=== PATIENT | male | born 1950 | race Caucasian/White ===

== ENCOUNTER 2020-06-11 16:26 | Inpatient (IN) ==
[2020-06-11] MEDS: Melatonin 3 MG TABLET PO SCH (22:41)
[2020-06-11] MEDS: traZODone 50 MG TABLET PO SCH (23:08)
[2020-06-12 06:47] LABS: Hematocrit 21.1 % (37.5-50.1); Hemoglobin 6.5 g/dL (12.9-16.9); Mean Corpuscular HGB Conc 30.8 g/dL (31.6-35.5); Mean Corpuscular Hemoglobin 28.1 pg (28.0-33.3); Mean Corpuscular Volume 91.3 fL (83.0-100.0); Mean Platelet Volume 9.2 fL (9.4-12.4); Platelet Count 302 K/mcL (140-400); Red Blood Count 2.31 M/mcL (4.19-5.50); Red Cell Distribution Width 18.4 % (11.5-14.5); White Blood Count 9.7 K/mcL (4.3-11.1)
[2020-06-12] MEDS ORDERED: 0.9 % Sodium Chloride 250 ML IVC SCH (08:00)
[2020-06-12] MEDS: *HR* Amiodarone 200 MG TABLET PO SCH (08:44)
[2020-06-12] MEDS: predniSONE 5 MG TABLET PO SCH (08:44)
[2020-06-12 08:51] LABS: Alanine Aminotransferase 24 Units/L (7-52); Albumin 2.6 g/dL (3.5-5.7); Albumin/Globulin Ratio 0.9 (1.1-2.2); Alkaline Phosphatase 98 Units/L (34-104); Aspartate Amino Transferase 18 Units/L (13-39); BUN/Creatinine Ratio 22 (6-26); Bilirubin,Total 0.5 mg/dL (0.3-1.0); Blood Urea Nitrogen 26 mg/dL (8-23); Calcium 8.4 mg/dL (8.6-10.3); Carbon Dioxide 30 mEq/L (23-29); Chloride 94 mEq/L (98-107); Globulin 2.8 g/dL (2.4-3.5); Glucose 90 mg/dL (70-105); Magnesium 2.3 mg/dL (1.6-2.6); Osmolality,Calculated 278 (280-300); Potassium 3.7 mEq/L (3.5-5.1); Sodium 132 mEq/L (136-145); Total Protein 5.4 g/dL (6.4-8.9); eGFR For African Americans > 60 (> 60); eGFR For Non-African Americans > 60 (> 60)
[2020-06-12] MEDS ORDERED: Torsemide 20 MG TABLET PO SCH (09:00)
[2020-06-12] MEDS ORDERED: Apixaban 2.5 MG TABLET PO SCH ×2 (09:00)
[2020-06-12] MEDS: Apixaban 5 MG TABLET PO SCH ×2 (11:57→20:41)
[2020-06-12] MEDS ORDERED: 0.9 % Sodium Chloride 1,000 ML ONE (14:38)
[2020-06-12] MEDS: traZODone 50 MG TABLET PO SCH (20:41)
[2020-06-12] MEDS: Melatonin 3 MG TABLET PO SCH (20:41)
[2020-06-12] MEDS ORDERED: traZODone 50 MG TABLET PO SCH (21:00)
[2020-06-13 05:32] LABS: Basophils # 0.1 K/mcL (0.0-0.2); Basophils % 0.6 %; Eosinophils # 0.4 K/mcL (0.0-0.6); Hematocrit 27.4 % (37.5-50.1); Hemoglobin 8.9 g/dL (12.9-16.9); Immature Granulocytes % 0.4 % (0-4); Lymphocytes # 1.7 K/mcL (0.6-4.6); Lymphocytes % 17.3 %; Mean Corpuscular HGB Conc 32.5 g/dL (31.6-35.5); Mean Corpuscular Hemoglobin 28.8 pg (28.0-33.3); Mean Corpuscular Volume 88.7 fL (83.0-100.0); Mean Platelet Volume 9.2 fL (9.4-12.4); Monocytes # 0.7 K/mcL (0.0-1.3); Neutrophils # 6.9 K/mcL (1.6-8.9); Platelet Count 303 K/mcL (140-400); Red Blood Count 3.09 M/mcL (4.19-5.50); Red Cell Distribution Width 17.6 % (11.5-14.5); Segmented Neutrophils % 70.7 %; White Blood Count 9.7 K/mcL (4.3-11.1)
[2020-06-13 08:27] LABS: BUN/Creatinine Ratio 22 (6-26); Blood Urea Nitrogen 26 mg/dL (8-23); Calcium 8.2 mg/dL (8.6-10.3); Carbon Dioxide 30 mEq/L (23-29); Chloride 96 mEq/L (98-107); Glucose 79 mg/dL (70-105); Osmolality,Calculated 284 (280-300); Sodium 135 mEq/L (136-145); eGFR For African Americans > 60 (> 60); eGFR For Non-African Americans 60 (> 60)
[2020-06-13] MEDS: *HR* Amiodarone 200 MG TABLET PO SCH (08:43)
[2020-06-13] MEDS: Torsemide 20 MG TABLET PO SCH (08:43)
[2020-06-13] MEDS: predniSONE 5 MG TABLET PO SCH (08:43)
[2020-06-13 09:01] LABS: Estimated Average Glucose 97 mg/dl
[2020-06-13] MEDS ORDERED: Potassium Chloride Elixir 20 MEQ/15 ML UDC PO ONE (09:22)
[2020-06-13] MEDS: Apixaban 5 MG TABLET PO SCH (09:41)
[2020-06-13] MEDS: Sennosides/Docusate Sodium TABLET PO SCH ×2 (11:47→20:44)
[2020-06-13] MEDS ORDERED: Methyl Salicylate/Menthol 57 APPL/57 GM TUBE TP PRN (15:08)
[2020-06-13] MEDS: Melatonin 3 MG TABLET PO SCH (20:44)
[2020-06-13] MEDS: traZODone 50 MG TABLET PO SCH (20:44)
[2020-06-14 06:35] LABS: Basophils # 0.1 K/mcL (0.0-0.2); Basophils % 0.7 %; Eosinophils # 0.4 K/mcL (0.0-0.6); Eosinophils % 4.4 %; Hemoglobin 8.9 g/dL (12.9-16.9); Immature Granulocytes % 0.7 % (0-4); Lymphocytes # 1.5 K/mcL (0.6-4.6); Lymphocytes % 17.2 %; Mean Corpuscular HGB Conc 31.8 g/dL (31.6-35.5); Mean Corpuscular Volume 91.2 fL (83.0-100.0); Mean Platelet Volume 9.2 fL (9.4-12.4); Monocytes # 0.7 K/mcL (0.0-1.3); Monocytes % 7.8 %; Platelet Count 282 K/mcL (140-400); Red Blood Count 3.07 M/mcL (4.19-5.50); Red Cell Distribution Width 17.6 % (11.5-14.5); Segmented Neutrophils % 69.2 %; White Blood Count 8.6 K/mcL (4.3-11.1)
[2020-06-14 06:53] LABS: BUN/Creatinine Ratio 21 (6-26); Blood Urea Nitrogen 21 mg/dL (8-23); Calcium 8.3 mg/dL (8.6-10.3); Carbon Dioxide 28 mEq/L (23-29); Chloride 101 mEq/L (98-107); Glucose 84 mg/dL (70-105); Magnesium 2.1 mg/dL (1.6-2.6); Osmolality,Calculated 286 (280-300); Potassium 3.4 mEq/L (3.5-5.1); Sodium 137 mEq/L (136-145); eGFR For African Americans > 60 (> 60); eGFR For Non-African Americans > 60 (> 60)
[2020-06-14] MEDS: Torsemide 20 MG TABLET PO SCH (08:48)
[2020-06-14] MEDS: *HR* Amiodarone 200 MG TABLET PO SCH (09:31)
[2020-06-14] MEDS: Sennosides/Docusate Sodium TABLET PO SCH ×2 (09:32→20:32)
[2020-06-14] MEDS: predniSONE 5 MG TABLET PO SCH (09:32)
[2020-06-14] MEDS: Melatonin 3 MG TABLET PO SCH (20:33)
[2020-06-14] MEDS: traZODone 50 MG TABLET PO SCH (20:33)
[2020-06-15 06:23] LABS: Basophils # 0.1 K/mcL (0.0-0.2); Basophils % 0.6 %; Eosinophils # 0.4 K/mcL (0.0-0.6); Eosinophils % 4.9 %; Hemoglobin 9.2 g/dL (12.9-16.9); Immature Granulocytes % 0.5 % (0-4); Lymphocytes # 1.6 K/mcL (0.6-4.6); Lymphocytes % 17.7 %; Mean Corpuscular HGB Conc 31.7 g/dL (31.6-35.5); Mean Corpuscular Hemoglobin 29.5 pg (28.0-33.3); Mean Corpuscular Volume 92.9 fL (83.0-100.0); Mean Platelet Volume 9.1 fL (9.4-12.4); Monocytes # 0.6 K/mcL (0.0-1.3); Monocytes % 6.9 %; Neutrophils # 6.1 K/mcL (1.6-8.9); Platelet Count 290 K/mcL (140-400); Red Blood Count 3.12 M/mcL (4.19-5.50); Red Cell Distribution Width 18.2 % (11.5-14.5); Segmented Neutrophils % 69.4 %; White Blood Count 8.8 K/mcL (4.3-11.1)
[2020-06-15 06:43] LABS: BUN/Creatinine Ratio 17 (6-26); Blood Urea Nitrogen 16 mg/dL (8-23); Calcium 8.4 mg/dL (8.6-10.3); Carbon Dioxide 29 mEq/L (23-29); Chloride 103 mEq/L (98-107); Glucose 82 mg/dL (70-105); Magnesium 2.2 mg/dL (1.6-2.6); Osmolality,Calculated 286 (280-300); Potassium 3.7 mEq/L (3.5-5.1); Sodium 138 mEq/L (136-145); eGFR For African Americans > 60 (> 60); eGFR For Non-African Americans > 60 (> 60)
[2020-06-15] MEDS: Sennosides/Docusate Sodium TABLET PO SCH ×2 (08:13→21:46)
[2020-06-15] MEDS: *HR* Amiodarone 200 MG TABLET PO SCH (08:13)
[2020-06-15] MEDS: Torsemide 20 MG TABLET PO SCH (08:13)
[2020-06-15] MEDS: predniSONE 5 MG TABLET PO SCH (08:13)
[2020-06-15] MEDS: Melatonin 3 MG TABLET PO SCH (21:46)
[2020-06-15] MEDS: traZODone 50 MG TABLET PO SCH (21:46)
[2020-06-16 07:47] LABS: Basophils # 0.1 K/mcL (0.0-0.2); Basophils % 0.9 %; Eosinophils # 0.4 K/mcL (0.0-0.6); Eosinophils % 4.9 %; Hematocrit 29.4 % (37.5-50.1); Hemoglobin 9.1 g/dL (12.9-16.9); Immature Granulocytes % 0.4 % (0-4); Lymphocytes # 1.5 K/mcL (0.6-4.6); Lymphocytes % 18.8 %; Mean Corpuscular Hemoglobin 29.3 pg (28.0-33.3); Mean Corpuscular Volume 94.5 fL (83.0-100.0); Mean Platelet Volume 8.8 fL (9.4-12.4); Monocytes # 0.6 K/mcL (0.0-1.3); Monocytes % 7.8 %; Neutrophils # 5.3 K/mcL (1.6-8.9); Platelet Count 283 K/mcL (140-400); Red Blood Count 3.11 M/mcL (4.19-5.50); Red Cell Distribution Width 18.7 % (11.5-14.5); Segmented Neutrophils % 67.2 %; White Blood Count 7.8 K/mcL (4.3-11.1)
[2020-06-16] MEDS: *HR* Amiodarone 200 MG TABLET PO SCH (07:54)
[2020-06-16] MEDS: Sennosides/Docusate Sodium TABLET PO SCH ×2 (07:54→20:57)
[2020-06-16] MEDS: predniSONE 5 MG TABLET PO SCH (07:54)
[2020-06-16] MEDS: Torsemide 20 MG TABLET PO SCH (07:54)
[2020-06-16 07:56] LABS: BUN/Creatinine Ratio 11 (6-26); Blood Urea Nitrogen 11 mg/dL (8-23); Calcium 8.1 mg/dL (8.6-10.3); Carbon Dioxide 26 mEq/L (23-29); Chloride 105 mEq/L (98-107); Glucose 87 mg/dL (70-105); Magnesium 2.1 mg/dL (1.6-2.6); Osmolality,Calculated 281 (280-300); Potassium 3.7 mEq/L (3.5-5.1); Sodium 136 mEq/L (136-145); eGFR For African Americans > 60 (> 60); eGFR For Non-African Americans > 60 (> 60)
[2020-06-16] MEDS: traZODone 50 MG TABLET PO SCH (20:56)
[2020-06-16] MEDS: Melatonin 3 MG TABLET PO SCH (20:57)
[2020-06-17 07:19] LABS: Basophils # 0.1 K/mcL (0.0-0.2); Basophils % 0.8 %; Eosinophils # 0.3 K/mcL (0.0-0.6); Eosinophils % 3.8 %; Hematocrit 27.9 % (37.5-50.1); Hemoglobin 8.7 g/dL (12.9-16.9); Immature Granulocytes % 0.4 % (0-4); Lymphocytes # 1.4 K/mcL (0.6-4.6); Lymphocytes % 19.6 %; Mean Corpuscular HGB Conc 31.2 g/dL (31.6-35.5); Mean Corpuscular Hemoglobin 29.5 pg (28.0-33.3); Mean Corpuscular Volume 94.6 fL (83.0-100.0); Mean Platelet Volume 8.8 fL (9.4-12.4); Monocytes # 0.6 K/mcL (0.0-1.3); Monocytes % 8.5 %; Neutrophils # 4.8 K/mcL (1.6-8.9); Platelet Count 274 K/mcL (140-400); Red Blood Count 2.95 M/mcL (4.19-5.50); Segmented Neutrophils % 66.9 %; White Blood Count 7.2 K/mcL (4.3-11.1)
[2020-06-17 07:32] LABS: BUN/Creatinine Ratio 11 (6-26); Blood Urea Nitrogen 11 mg/dL (8-23); Calcium 8.1 mg/dL (8.6-10.3); Carbon Dioxide 24 mEq/L (23-29); Chloride 106 mEq/L (98-107); Glucose 82 mg/dL (70-105); Osmolality,Calculated 284 (280-300); Potassium 3.6 mEq/L (3.5-5.1); Sodium 138 mEq/L (136-145); eGFR For African Americans > 60 (> 60); eGFR For Non-African Americans > 60 (> 60)
[2020-06-17] MEDS: predniSONE 5 MG TABLET PO SCH (09:25)
[2020-06-17] MEDS: Sennosides/Docusate Sodium TABLET PO SCH ×2 (09:25→19:39)
[2020-06-17] MEDS: *HR* Amiodarone 200 MG TABLET PO SCH (09:25)
[2020-06-17] MEDS: Torsemide 20 MG TABLET PO SCH (09:26)
[2020-06-17] MEDS: Melatonin 3 MG TABLET PO SCH (19:37)
[2020-06-17] MEDS: Apixaban 5 MG TABLET PO SCH (19:37)
[2020-06-17] MEDS: traZODone 50 MG TABLET PO SCH (19:38)
[2020-06-18] MEDS: predniSONE 5 MG TABLET PO SCH (08:00)
[2020-06-18] MEDS: *HR* Amiodarone 200 MG TABLET PO SCH (08:00)
[2020-06-18] MEDS: Apixaban 5 MG TABLET PO SCH (08:00)
[2020-06-18] MEDS: Sennosides/Docusate Sodium TABLET PO SCH ×2 (08:00→21:07)
[2020-06-18] MEDS: Torsemide 20 MG TABLET PO SCH (08:01)
[2020-06-18] MEDS: Melatonin 3 MG TABLET PO SCH (21:07)
[2020-06-18] MEDS: traZODone 50 MG TABLET PO SCH (21:07)
[2020-06-19] MEDS: Torsemide 20 MG TABLET PO SCH (08:11)
[2020-06-19] MEDS: *HR* Amiodarone 200 MG TABLET PO SCH (08:11)
[2020-06-19] MEDS: Sennosides/Docusate Sodium TABLET PO SCH ×2 (08:11→20:16)
[2020-06-19] MEDS: predniSONE 5 MG TABLET PO SCH (08:11)
[2020-06-19 13:17] LABS: Basophils # 0.1 K/mcL (0.0-0.2); Basophils % 0.6 %; Eosinophils # 0.3 K/mcL (0.0-0.6); Eosinophils % 2.8 %; Hematocrit 29.4 % (37.5-50.1); Immature Granulocytes % 0.7 % (0-4); Lymphocytes # 0.7 K/mcL (0.6-4.6); Lymphocytes % 7.4 %; Mean Corpuscular HGB Conc 30.6 g/dL (31.6-35.5); Mean Corpuscular Hemoglobin 30.1 pg (28.0-33.3); Mean Corpuscular Volume 98.3 fL (83.0-100.0); Mean Platelet Volume 8.8 fL (9.4-12.4); Monocytes # 0.6 K/mcL (0.0-1.3); Monocytes % 6.4 %; Neutrophils # 7.3 K/mcL (1.6-8.9); Platelet Count 232 K/mcL (140-400); Red Blood Count 2.99 M/mcL (4.19-5.50); Red Cell Distribution Width 19.7 % (11.5-14.5); Segmented Neutrophils % 82.1 %; White Blood Count 8.8 K/mcL (4.3-11.1)
[2020-06-19 14:35] LABS: BUN/Creatinine Ratio 14 (6-26); Blood Urea Nitrogen 13 mg/dL (8-23); Calcium 8.1 mg/dL (8.6-10.3); Carbon Dioxide 22 mEq/L (23-29); Chloride 104 mEq/L (98-107); Glucose 169 mg/dL (70-105); Osmolality,Calculated 286 (280-300); Potassium 4.8 mEq/L (3.5-5.1); Sodium 136 mEq/L (136-145); eGFR For African Americans > 60 (> 60); eGFR For Non-African Americans > 60 (> 60)
[2020-06-19] MEDS: Melatonin 3 MG TABLET PO SCH (20:15)
[2020-06-19] MEDS: traZODone 50 MG TABLET PO SCH (20:16)
[2020-06-20] MEDS: *HR* Amiodarone 200 MG TABLET PO SCH (09:04)
[2020-06-20] MEDS: Sennosides/Docusate Sodium TABLET PO SCH ×2 (09:04→20:10)
[2020-06-20] MEDS: predniSONE 5 MG TABLET PO SCH (09:05)
[2020-06-20] MEDS: traZODone 50 MG TABLET PO SCH (20:11)
[2020-06-20] MEDS: Melatonin 3 MG TABLET PO SCH (20:11)
[2020-06-21 06:38] VITALS: BP 121/74
[2020-06-21] MEDS: predniSONE 5 MG TABLET PO SCH (09:20)
[2020-06-21] MEDS: Sennosides/Docusate Sodium TABLET PO SCH (09:20)
[2020-06-21] MEDS: *HR* Amiodarone 200 MG TABLET PO SCH (09:21)
== END 2020-06-21 14:00 | disposition home health service (06) | DRG 945 ==
LOC: INPPIK 19:28
PROVIDERS: ADMIT Family Medicine; ATTEND Family Medicine